=== PATIENT | female | born 1950 ===

== ENCOUNTER 2022-04-27 09:15 | Inpatient (IN) | payer OTHER ==
[~2022-04-27] VITALS: Ht 157.5 cm; Wt 69.4 kg
[2022-04-27] MEDS ORDERED: GLIPIZIDE XL5 MG PO (13:14)
[2022-04-27] MEDS ORDERED: GABAPENTIN100 M2 PO (13:14)
[2022-04-27] MEDS ORDERED: ZESTRIL20 MG PO (13:14)
[2022-04-27] MEDS ORDERED: LIPITOR40 M1 PO (13:15)
[2022-04-27] MEDS ORDERED: ADULT LOW DOSE81 M1 PO (13:15)
[2022-04-27] MEDS ORDERED: RESTORA CAPSUL1 EACH PO (13:15)
[2022-04-27] MEDS ORDERED: CALTRATE 600 +1 EAC1 PO (13:16)
[2022-05-05] MEDS ORDERED: PANTOPRAZOLE SO40 MG (08:07)
[2022-05-05] MEDS ORDERED: MONTELUKAST SOD10 MG (08:07)
[2022-05-07] MEDS ORDERED: OXYCODONE HCL5 MG PO (08:24)
== END 2022-05-07 10:45 | disposition home or self-care (01) | DRG 331 ==
LOC: SURH 05-03 07:00 → SURG 05-03 08:30 → O/R 05-03 08:30 → SURH 05-03 09:15 → SURG 05-03 18:45
PROVIDERS: ADMIT Surgery; ATTEND Surgery
PROC: 0DBP4ZZ Excision of Rectum, Percutaneous Endoscopic Approach (ICD-10-PCS; 2022-05-03)
PROC: 0DJD8ZZ Inspection of Lower Intestinal Tract, Via Natural or Artificial Opening Endoscopic (ICD-10-PCS; 2022-05-03)
PROC: 0UT64ZZ Resection of Left Fallopian Tube, Percutaneous Endoscopic Approach (ICD-10-PCS; 2022-05-03)
PROC: 0UT04ZZ Resection of Right Ovary, Percutaneous Endoscopic Approach (ICD-10-PCS; 2022-05-03)
PROC: 0DTN4ZZ Resection of Sigmoid Colon, Percutaneous Endoscopic Approach (ICD-10-PCS; principal; 2022-05-03 07:00)
PROC: 3E0F7GC Introduction of Other Therapeutic Substance into Respiratory Tract, Via Natural or Artificial Opening (ICD-10-PCS; 2022-05-06)
DX: K57.32 Diverticulitis of large intestine without perforation or abscess without bleeding (principal); D27.0 Benign neoplasm of right ovary; Z20.822 Contact with and (suspected) exposure to COVID-19